=== PATIENT | female | born 1965 | race Caucasian/White ===

== ENCOUNTER 2017-01-04 15:54 | Emergency (ER) | payer SELFPAY ==
[~2017-01-04] VITALS: Ht 165.1 cm; Wt 56.7 kg
[~2017-01-04 15:54] MED LIST: IBUP-23 PO
--- NOTE | 2017-01-04 16:14 | NUR ---
PT IS IN ROOM #2B. DR CARDENAS EVALUATED THE PT.
[2017-01-04] MEDS ORDERED: IV NORMAL SALINE 1000 ML BAG IV ONE (16:15)
[2017-01-04 16:31] LABS: HEMOGLOBIN 12.2 g/dL (12.0-16.0)
[2017-01-04 16:34] LABS: CALCIUM 8.8 mg/dL (8.5-10.1); CREATININE 0.6 mg/dL (0.6-1.3); POTASSIUM 3.8 mmol/L (3.5-5.1)
[2017-01-04 16:35] LABS: MEAN CORPUSCULAR HGB CONC 32 g/dL (32.0-37.0)
[2017-01-04 16:39] LABS: ALBUMIN 3.6 g/dL (3.4-5.0); BILIRUBIN,DIRECT 0.1 mg/dL (0.0-0.2); BILIRUBIN,TOTAL 0.3 mg/dL (0.2-1.0)
[2017-01-04 16:41] LABS: TROPONIN I < 0.017 ng/mL (0.00-0.056)
[2017-01-04 16:42] LABS: HEMATOCRIT 37.3 % (37.0-47.0); MEAN CORPUSCULAR HEMOGLOBIN 26.1 uug (27.0-31.0); PLATELET COUNT (AUTO) 262 K/uL (150-450); RED BLOOD CELL COUNT(AUTO) 4.66 MIL/uL (4.20-5.40); RED CELL DISTRIBUTION WIDTH 15.2 % (11.5-14.5); WHITE BLOOD COUNT (AUTO) 6.3 K/uL (4.0-11.2)
[2017-01-04 16:50] LABS: LACTIC ACID 0.6 mmol/L (0.4-2.0)
[2017-01-04 16:51] LABS: ANISOCYTOSIS 1+; BAND % (MANUAL) 2 % (0-10); EOSINOPHILS % (MANUAL) 1 % (0-8); LYMPHOCYTES % (MANUAL) 13 % (20-40); MONOCYTES % (MANUAL) 8 % (2-10); NEUTROPHILS % (MANUAL) 76 % (42-75); OVALOCYTES FEW; PLATELET ESTIMATE ADEQUATE
[2017-01-04 17:06] VITALS: BP 111/69
== END 2017-01-04 17:07 | disposition home or self-care (01) ==
LOC: ER 15:58
DX: R55 Syncope and collapse (principal)
CPT/HCPCS: 71010; 80048; 80076; 83605; 84484; 85025; 85730; 87040; 93005; 96360; 99285; A4663; 70030-TC